=== PATIENT | male | born 1955 | race Caucasian/White ===

== ENCOUNTER 2016-09-17 07:24 | Day surgery (SDC) ==
[2016-09-17] MEDS ORDERED: LIDOCAINE 1% 20 ML MDV ONE (08:00)
[2016-09-17] MEDS ORDERED: LIDOCAINE 1% 2ML (SURGERY ONLY) ID ONE (08:00)
[2016-09-17] MEDS ORDERED: DIPRIVAN 20 ML VIAL IVP ONE (08:45)
[2016-09-17] MEDS ORDERED: SUBLIMAZE ONE (08:45)
[2016-09-17] MEDS ORDERED: VERSED ONE (08:45)
[2016-09-17] MEDS ORDERED: LIDOCAINE 1%-EPI 1:100,000 10 ML (SURGERY) INJ ONE (08:55)
[2016-09-17] MEDS ORDERED: NEOSPORIN OINT 0.9 GM PACKET TP ONE (09:10)
[2016-09-17] MEDS ORDERED: GELFOAM SIZE 50 TP ONE (09:10)
[2016-09-17 10:47] VITALS: BP 130/79; TEMP 97.4
--- NOTE | 2016-09-18 13:09 | OP ---
PREOPERATIVE DIAGNOSIS: LEFT TYMPANIC MEMBRANE PERFORATION. POSTOPERATIVE DIAGNOSIS: LEFT TYMPANIC MEMBRANE PERFORATION. OPERATION: LEFT TYPE 1 TYMPANOPLASTY. DESCRIPTION OF PROCEDURE: The patient was taken to surgery, placed on the table and general anesthesia was administered. The left ear was prepped and draped in the usual manner. 1% Xylocaine to 100,000 Epinephrine was injected in the external ear canal and tragus. A tympanomeatal flap was created between approximately six and twelve o 'clock. Dissection was carried down to the annulus. Prior to this, the edges of the perforations were freshened up with cup forceps. A small myringotomy incision was made anterior for escape of gases. The middle ear was filled with pledgets of Gelfoam. The perichondrial graft was placed under the tympanic membrane. The annulus was placed back in its anatomical position and was pulled up against the tympanic membrane. Gelfoam was placed against the surface of the drum and ear canal was filled with antibiotic ointment. Incision was closed using interrupted 3-0 Chromic suture. The patient was then extubated and returned to the recovery room in satisfactory condition. The patient was extubated and returned to the recovery room in satisfactory condition. ANN MARIE
== END 2016-09-17 10:47 | disposition home or self-care (01) ==
LOC: SURG 07:24
PROVIDERS: ATTEND Otolaryngology
DX: H72.92 Unspecified perforation of tympanic membrane, left ear (principal)

== ENCOUNTER → 2016-10-01 | Outpatient (POV) | LOC: OUTPT 00:01 | PROVIDERS: ATTEND Otolaryngology | DX: Z98.890 Other specified postprocedural states (principal) | CPT/HCPCS: 92557; 92567 ==